=== PATIENT | male | born 1980 | race Two or more races ===

== ENCOUNTER 2020-03-14 05:43 | Emergency (ER) | payer OTHER ==
[~2020-03-14] VITALS: Ht 172.7 cm; Wt 86.6 kg
[2020-03-14 05:45] VITALS: BP 113/74
--- NOTE | 2020-03-14 05:52 | NUR ---
PATIENT CAME TO ER BED 4 C/O RIGHT SHOULDER PAIN SINCE THIS MORNING AFTER WAKING UP. PATIENT STATES THAT HE WAS LIFTING SMALL FREE WEIGHTS YESTERDAY WHEN HE FELT PAIN AFTER A CERTAIN AMOUNT OF REPTITIONS. PATIENT STATES HE IS CURRENTLY UNABLE TO LIFT HIS ARM ABOVE HIS RIGHT SHOULDER, BUT IS ABLE TO BEND HIS ELBOW AND WRIGGLE HIS FINGERS. PATIENT HAS EQUAL AND STRONG RADIAL PULSES BILATERALLY. PATIENT C/O SHARP RIGHT SHOULDER PAIN. AAOX4. NO SOB. BREATHING EVENLY AND UNLABORED ON ROOM AIR.
--- NOTE | 2020-03-14 06:08 | NUR ---
DR HER AT BEDSIDE FOR EVAL
[2020-03-14] MEDS ORDERED: IBUPROFEN 600 MG TABLET PO ONE ×2 (06:10→06:30)
--- NOTE | 2020-03-14 06:37 | NUR ---
RADIOLOGY AT BEDSIDE FOR XRAY
--- NOTE | 2020-03-14 07:16 | NUR ---
Patient discharged to home in stable condition. Written and verbal after care instructions given. Patient verbalizes understanding of instruction.
== END 2020-03-14 07:16 | disposition home or self-care (01) ==
LOC: ER 05:49
DX: S43.491A Other sprain of right shoulder joint, initial encounter (principal); X58.XXXA Exposure to other specified factors, initial encounter; Y93.89 Activity, other specified; Y92.89 Other specified places as the place of occurrence of the external cause; Y99.8 Other external cause status
CPT/HCPCS: 73030-TC